=== PATIENT | male | born 1940 | race Hispanic/Latino ===

== ENCOUNTER 2024-01-23 07:26 | Day surgery (SDC) | payer OTHER ==
[2024-01-17 11:00] LABS: APPEARANCE,URINE CLEAR (CLEAR); BILIRUBIN,URINE NEGATIVE (NEGATIVE); COLOR,URINE YELLOW (YELLOW); GLUCOSE, URINE (UA) NEGATIVE (NEGATIVE); KETONES,URINE NEGATIVE (NEGATIVE); LEUKOCYTE ESTERASE ,URINE NEGATIVE Leu/uL (NEGATIVE); NITRATE,URINE NEGATIVE (NEGATIVE); OCCULT BLOOD,URINE NEGATIVE (NEGATIVE); PROTEIN,URINE NEGATIVE (NEGATIVE); UROBILINOGEN,URINE 0.2 mg/dL (0.2-1.0)
[2024-01-17 11:02] LABS: ADD UA MICROSCOPIC NO
[2024-01-17 11:23] LABS: BASOPHILS # (AUTO) 0.08 K/uL (0.00-0.20); EOSINOPHILS # (AUTO) 0.44 K/uL (0.00-0.70); EOSINOPHILS % (AUTO) 5.8 % (0.0-8.0); HEMATOCRIT 45.4 % (42-54); IMMATURE GRANULOCYTE ABSOLUTE 0.05 K/uL (0-1); LYMPHOCYTES # (AUTO) 1.5 K/uL (1.0-4.8); LYMPHOCYTES % (AUTO) 19.1 % (21.0-51.0); MEAN CORPUSCULAR HGB CONC 31.5 g/dL (32.0-36.0); MEAN CORPUSCULAR VOLUME 88.8 fL (79-99); MONOCYTES # (AUTO) 0.5 K/uL (0.1-1.0); MONOCYTES % (AUTO) 5.9 % (3.0-13.0); NEUTROPHILS # (AUTO) 5.2 K/uL (1.8-7.7); NEUTROPHILS % (AUTO) 67.5 % (40.0-77.0); PLATELET COUNT (AUTO) 278 K/uL (130-400); RED BLOOD CELL COUNT(AUTO) 5.11 MIL/uL (4.50-6.20); RED CELL DISTRIBUTION WIDTH 14.4 % (11.0-15.5); WHITE BLOOD COUNT (AUTO) 7.6 K/uL (4.8-10.8)
[2024-01-17 11:32] LABS: CREATININE 1.1 mg/dL (0.5-1.3); POTASSIUM 3.7 mmol/L (3.5-5.1)
[2024-01-17 11:40] VITALS: BP 94/55; PULSE 50; RESP 18
[2024-01-17 11:47] LABS: INR <= 0.93 (0.85-1.15); PROTHROMBIN TIME 10.5 SEC (9.6-11.6)
[2024-01-17 11:49] LABS: PARTIAL THROMBOPLASTIN TIME 26.9 SEC (26.3-35.5)
[2024-01-23] VITALS (20 sets, daily range): BP systolic 117–141; BP diastolic 59–80; PULSE 45–61; RESP 14–20
[~2024-01-23] VITALS: Ht 175.3 cm; Wt 90.2 kg
[~2024-01-23 07:26] MED LIST: AEC81 PO; ALLO300T2 PO; AREDS PO; ATEN50TA PO; CITRACAL PO; FINA5TAB41 PO; IBAN150T21 PO; LEVAQUIN PO; LOSA1TAB37 PO; ONE A DAY PO; PRAZ5CAP2 PO; TAMS-1 PO; VITAMIN K PO; [UNRECOGNIZED DRUG - OTHER] PO
[2024-01-23] MEDS: LACTATED RINGERS 1000ML 1,000 ML IV ONE (08:36)
[2024-01-23] MEDS: CEFTRIAXONE 1G VIAL ONE (08:36)
[2024-01-23] MEDS: GENTAMICIN 80 MG/NS 100 ML PB 100 ML IV ONE (08:36)
[2024-01-23] MEDS ORDERED: PROPOFOL 10 MG/ML 20ML VIAL IV ONE ×2 (08:39→10:39)
[2024-01-23] MEDS ORDERED: FENTANYL CITRATE PF 50 MCG/1 ML 2ML VIAL ONE ×2 (08:39→10:57)
[2024-01-23] MEDS ORDERED: ROCURONIUM BROMIDE 10MG/1ML 5ML VL ONE (08:39)
[2024-01-23] MEDS ORDERED: MIDAZOLAM HCL 1 MG/ML 2ML VIAL ONE (08:39)
[2024-01-23] MEDS ORDERED: ONDANSETRON 4MG INJ ONE (08:49)
[2024-01-23] MEDS ORDERED: PHENYLEPHRINE HCL 10 MG/ML 1ML VIAL IV ONE (09:42)
[2024-01-23] MEDS ORDERED: NEOSTIGMINE METHYLSULFATE 1MG/ML IV ONE (10:56)
[2024-01-23] MEDS ORDERED: GLYCOPYRROLATE 0.2 MG/ML 5 ML VIAL ONE (10:56)
[2024-01-23] MEDS: MEPERIDINE-PF 25 MG/ML SYG ONE (11:37)
[2024-01-23] MEDS ORDERED: BACITRACIN 1 EACH PACKET TP ONE (12:47)
== END 2024-01-23 13:35 | disposition home or self-care (01) ==
LOC: DAH 07:26
PROVIDERS: ATTEND Urology
DX: N40.1 Benign prostatic hyperplasia with lower urinary tract symptoms (principal); N32.89 Other specified disorders of bladder; I10 Essential (primary) hypertension; M10.9 Gout, unspecified; Z82.49 Family history of ischemic heart disease and other diseases of the circulatory system; Z82.5 Family history of asthma and other chronic lower respiratory diseases; Z82.3 Family history of stroke; Z87.891 Personal history of nicotine dependence; Z72.89 Other problems related to lifestyle; Z79.82 Long term (current) use of aspirin; Z79.899 Other long term (current) drug therapy; Z87.440 Personal history of urinary (tract) infections
CPT/HCPCS: 80048; 85025; 85610; 85730; 87088; 81003; 36415; 71045; 93005; 52648; A4663; J7120 ×2; A4354; J3010 ×2; J3490 ×2; J0696; J2250; J2704; J2405; J2710; J2175; J2371; J1580; A4358; A4930; A4215; A4222; A4223 ×2; A4221; A4600

== ENCOUNTER → 2025-06-24 | Outpatient (CLI) | payer OTHER ==
[~2025-06-24] MED LIST changes: -TAMS-1 PO; +TAMS-55 PO
--- NOTE | 2025-06-25 05:51 | HMCIMG ---
EXAM: CR Abdomen, 1 view. CLINICAL HISTORY: Pain. COMPARISON: None provided. FINDINGS: Nonobstructed nonspecific bowel gas pattern. No free air is evident. No abnormal calcification. No aggressive appearing osseous lesion. IMPRESSION: 1. No acute process. /[place]
--- NOTE | 2025-06-25 05:51 | HMCIMG ---
EXAM: CR Abdomen, 1 view. CLINICAL HISTORY: Pain. COMPARISON: None provided. FINDINGS: Nonobstructed nonspecific bowel gas pattern. No free air is evident. No abnormal calcification. No aggressive appearing osseous lesion. IMPRESSION: 1. No acute process. /[place]
== END | disposition home or self-care (01) ==
LOC: RAH 12:10
PROVIDERS: ATTEND Urology
DX: N20.0 Calculus of kidney (principal)
CPT/HCPCS: 74018; 76100